=== PATIENT | male | born 1990 | race African-American/Black ===

== ENCOUNTER 2017-05-03 11:09 | Emergency (ER) | payer SELFPAY ==
[~2017-05-03] VITALS: Ht 172.7 cm; Wt 96.0 kg
[2017-05-03 11:13] VITALS: BP 128/67; PULSE 89; RESP 16; TEMP 98.4; O2SAT 97
--- NOTE | 2017-05-03 11:27 | PD ---
HPI Chief Complaint: Musculoskeletal Complaint Time Seen by Provider: 11:20 Travel History International Travel<30 days: No Contact w/Intl Traveler<30days: No Traveled to known affect area: No History of Present Illness HPI 26-year-old male presents the ED for evaluation of 4 day history of left-sided rib pain. Rated 6/10, worsened to 10/10 with coughing, deep inspiration or overhead reaching. He denies palpitations, shortness of breath. Patient can identify no acute injury. He states that he has had a nonproductive cough for the last few weeks and thinks this may have contributed to his pain. States his cough is largely resolved. He treated at home with 2 ibuprofen on day 1 with no improvement in symptoms. PFSH Past Medical History Medical History: Denies Significant Hx Influenza Vaccination: No Past Surgical History Surgical History: No Previous Surgery Social History Alcohol Use: No Tobacco Use: Yes Substance Use: No Allergies-Medications (Allergen,Severity, Reaction): Coded Allergies: cranberry (Verified Allergy, Unknown, 05/03/17) Reported Meds & Prescriptions Reported Meds & Active Scripts Active Ibuprofen 800 Mg Tab 800 Mg PO Q8H PRN Review of Systems Except as stated in HPI: all other systems reviewed are Neg Physical Exam Narrative GENERAL: Well-nourished, well-developed -[place] male in no acute distress. SKIN: Focused skin assessment warm/dry. HEAD: Normocephalic. EYES: No scleral icterus. No injection or drainage. NECK: Supple, trachea midline. No JVD or lymphadenopathy. CARDIOVASCULAR: Regular rate and rhythm without murmurs, gallops, or rubs. CHEST: Point tenderness to palpation on the lateral left ribs. Otherwise nontender throughout without deformity or crepitus. RESPIRATORY: Breath sounds clear and equal bilaterally. No accessory muscle use. GASTROINTESTINAL: Abdomen soft, non-tender, nondistended. MUSCULOSKELETAL: No cyanosis, or edema. BACK: Nontender without obvious deformity. No CVA tenderness. Data Data Last Documented VS Vital Signs Date Time Temp Pulse Resp B/P (MAP) Pulse Ox O2 Delivery O2 Flow Rate FiO2 05/03/17 11:13 98.4 89 16 128/67 (87) 97 Orders Orders Chest, Pa & Lat (05/03/17 11:17) Ibuprofen (Motrin) (05/03/17 11:30) Ed Discharge Order (05/03/17 11:53) [facility] Medical Decision Making Medical Screen Exam Complete: Yes Emergency Medical Condition: Yes Differential Diagnosis Rib pain versus rib contusion versus musculoskeletal pain versus musculoskeletal strain versus other Narrative Course 26-year-old male presents the ED for evaluation of 4 day history of left-sided rib pain. Rated 6/10, worsened to 10/10 with coughing, deep inspiration or overhead reaching. He denies palpitations, shortness of breath. Patient can identify no acute injury. He states that he has had a nonproductive cough for the last few weeks and thinks this may have contributed to his pain. States his cough is largely resolved. Vitals reviewed. On physical exam the patient has some point tenderness on the lateral aspect of the rib but is otherwise unremarkable. No ecchymosis or edema noted. X-rays reveal no acute cardiopulmonary process or bony injury per radiology read. This is musculoskeletal pain. Patient is prescribed a short course of anti- inflammatories, instructed to rest, ice as tolerated, follow up with the primary care provider symptoms fail to resolve. He indicated understanding of the instructions and is agreeable to the care plan. He is stable and discharged home. Diagnosis Primary Impression: Rib pain on left side Referrals: Primary Care Physician Patient Instructions: General Instructions, Musculoskeletal Pain (ED) Additional Instructions: Rest, hydrate. Return to normal, gentle activity as tolerated. Warm or cold compresses applied to the area of pain 10-15 minutes at a time a few times a day may help to improve your symptoms. Gentle massage may also help to improve your symptoms. 800 mg ibuprofen every 8 hours as needed for pain up to 5 days. Follow-up with primary care provider. Return to the ED for any urgent or emergent medical condition. Med/Other Pt SpecificInfo: Prescription(s) given Scripts Ibuprofen (Ibuprofen) 800 Mg Tab 800 MG PO Q8H Y for Pain/Inflammation, #15 TAB 0 Refills Prov: Felix London MD 05/03/17 Disposition: 01 DISCHARGE HOME Condition: Stable Pura Bergeron May 03, 2017 11:27
[2017-05-03] MEDS ORDERED: IBUPROFEN 800 MG TAB PO ONE (11:30)
--- NOTE | 2017-05-03 11:45 | RADRPT ---
EXAM DATE/TIME: 05/03/2017 11:28 [place] COMPARISON: No previous studies available for comparison. INDICATIONS : Mid left anterior chest wall pain, cough, no known injury, woke up with pain MEDICAL HISTORY : None. SURGICAL HISTORY : None. ENCOUNTER: Initial ACUITY: 4 - 6 days PAIN SCORE: 6/10 LOCATION: Left chest Mid anterior FINDINGS: PA and lateral views of the chest. The lungs are clear. Cardiomediastinal silhouette within normal li mits. No evidence of pleural effusion or pneumothorax. CONCLUSION: No acute cardiopulmonary disease identified. Vinay Castillo MD on May 03, 2017 at 11:41 Board Certified Radiologist. This report was verified electronically.
[2017-05-03] MEDS ORDERED: IBUP1TAB7 PO (11:53)
== END 2017-05-03 12:02 | disposition home or self-care (01) ==
LOC: PHEFT 11:09
DX: R07.81 Pleurodynia (principal); Z72.0 Tobacco use
CPT/HCPCS: 71046; 99283